=== PATIENT | female | born 1950 | race Two or more races ===

== ENCOUNTER 2018-08-24 07:28 | Day surgery (SDC) | payer OTHER ==
[2018-08-24] VITALS (12 sets, daily range): BP systolic 138–160; BP diastolic 63–80; PULSE 70–86; RESP 16–32; Ht 154.9 cm; Wt 82.9 kg
[~2018-08-24] VITALS: Ht 154.9 cm; Wt 82.9 kg
[~2018-08-24 07:28] MED LIST: CEFAZOLIN 1 GM INJ ONE; DESFLURANE 15 MIN ONE; DEXAMETHASONE 4 MG/ML 5 ML INJ ONE; GLYCOPYRROLATE 0.4 MG INJ ONE; NEOSTIGMINE 3 MG/3 ML SYRINGE ONE; ONDANSETRON 4 MG INJ ONE
--- NOTE | 2018-08-24 07:30 | HPN ---
Date/Time of Note Date/Time of Note DATE: 08/24/18 TIME: 07:29 Interval H&P Admission Note Pt. seen H&P reviewed: No system changes VIKI MARIN MD Aug 24, 2018 07:30
[2018-08-24] MEDS ORDERED: MIDAZOLAM 1 MG/ML 2 ML INJ ONE (08:15)
[2018-08-24] MEDS ORDERED: FENTAnyl 50 MCG/ML VIAL ONE (08:15)
[2018-08-24] MEDS ORDERED: ROCURONIUM 50 MG INJ ONE (08:16)
[2018-08-24] MEDS ORDERED: PROPOFOL 20 ML ONE (08:16)
[2018-08-24] MEDS ORDERED: METOCLOPRAMIDE 10 MG INJ ONE (08:16)
[2018-08-24] MEDS ORDERED: SUCCINYLCHOLINE CHLORIDE 100 MG/5 ML SYG IV ONE (08:16)
[2018-08-24] MEDS ORDERED: ROPIVACAINE 0.5 % 30 ML VIAL ONE (08:16)
[2018-08-24] MEDS ORDERED: LIDOCAINE 2% (SDV) 5 ML INJ ONE (08:16)
[2018-08-24] MEDS ORDERED: IPRATROPIUM (NEB) 0.5 MG/2.5 ML AMP HHN ONE (08:30)
[2018-08-24] MEDS ORDERED: LEVALBUTEROL (NEB) 1.25 MG/0.5 ML AMP HHN ONE (08:30)
[2018-08-24] MEDS ORDERED: BUPIVACAINE 0.5%/EPI (SDV) 30 ML INJ ONE (08:46)
[2018-08-24] MEDS ORDERED: ESCI10TA PO (08:48)
[2018-08-24] MEDS ORDERED: ASPI81TA52 PO (08:48)
[2018-08-24] MEDS ORDERED: ATOR20TA38 PO (08:49)
[2018-08-24] MEDS ORDERED: MELO15TA30 PO (08:49)
[2018-08-24] MEDS ORDERED: NIFE60TA18 PO (08:49)
[2018-08-24] MEDS ORDERED: CLON-379 PO (08:50)
--- NOTE | 2018-08-24 09:15 | PREAC ---
Date/Time of Note Date/Time of Note DATE: 08/24/18 TIME: 09:13 Anesthesia Eval and Record Evaluation Time Pre-Procedure Interview DATE: 08/24/18 TIME: 09:13 Age 67 Sex female NPO: 8 hrs Preoperative diagnosis gallstones Planned procedure lap mireya Past Medical History Past Medical History: Includes Cardio: HTN, Dyslipidemia Pulm: Sleep Apnea, Other (dry cough, no phlegm/no fever/noWBCs) Musculoskeletal: Osteoarthritis Renal: CKD GI: GERD, Obesity Heme: Thrombocytopenia Psych: Depression Surgery & Anesthesia Issues Hx of difficult intubation Meds Anticoagulation: No Beta Guillaume within 24 hr: No Reason Beta Guillaume not given: Pt. not on B-Guillaume Reported Medications Clonidine Hcl* (Clonidine Hcl*) 0.1 Mg Tab, 0.1 MG PO DAILY PRN for ELEVATED BLOOD PRESSURE, TAB 08/24/18 Meloxicam* (Mobic*) 15 Mg Tablet, 15 MG PO DAILY, #30 TAB 08/24/18 Atorvastatin Calcium* (Atorvastatin Calcium*) 20 Mg Tablet, 20 MG PO QHS, #30 TAB 08/24/18 Nifedipine* (Nifedipine ER*) 60 Mg Tablet.sa, 60 MG PO DAILY, TAB.SA 08/24/18 Aspirin (Low Dose Aspirin) 81 Mg Tablet.dr, 81 MG PO DAILY, #30 TAB 08/24/18 Escitalopram Oxalate* (Lexapro*) 10 Mg Tablet, 10 MG PO DAILY, #30 TAB 08/24/18 Meds reviewed: Yes Allergies Coded Allergies: No Known Allergy (Unverified , 08/24/18) Allergies Reviewed: Yes Labs/Studies Labs Reviewed: Reviewed by anesthesiologist test: Negative Studies: ECG, CXR Pre-procedure Exam Last vitals Vital Signs Date Temp Pulse Resp B/P (MAP) Pulse Ox O2 O2 Flow FiO2 Time Delivery Rate 08/24/18 87.1 86 16 160/80 97 Room Air 08:43 (106) Airway: Adequate mouth opening, Adequate thyromental dist Mallampati: Mallampati III Teeth: Normal Lung: Normal Heart: Normal ASA Physical Status ASA physical status: 3 Emergency: None Planned Anesthetic General/MAC: ETT Planned Pain Management Single shot nerve block, Parenteral pain med, Local by surgeon Pre-operative Attestations Prior to commencing anesthesia and surgery, the patient was re-evaluated, there was verification of: *The patient's identity *The results of appropriate recent lab work and preoperative vital signs *The above evaluation not changing prior to induction *Anesthetic plan, risk benefits, alternative and complications discussed with patient/family; questions answered; patient/family understands, accepts and wishes to proceed. MANE FRAGA MD Aug 24, 2018 09:15
[2018-08-24] MEDS ORDERED: HYDROmorphONE 1 MG/5 ML IV SYRINGE IV PRN ×2 (09:30)
[2018-08-24] MEDS ORDERED: FENTAnyl 50 MCG/ML VIAL IV PRN ×2 (09:30)
[2018-08-24] MEDS ORDERED: LABETALOL HCL 20MG INJ IV PRN (09:30)
[2018-08-24] MEDS ORDERED: LEVALBUTEROL (NEB) 1.25 MG/0.5 ML AMP HHN PRN (09:30)
[2018-08-24] MEDS ORDERED: hydrALAzine 20 MG INJ IV PRN (09:30)
[2018-08-24] MEDS ORDERED: KETOROLAC 30 MG INJ IV PRN (09:30)
[2018-08-24] MEDS ORDERED: DIPHENHYDRAMINE 50 MG INJ IV PRN (09:30)
[2018-08-24] MEDS ORDERED: IPRATROPIUM (NEB) 0.5 MG/2.5 ML AMP HHN PRN (09:30)
[2018-08-24] MEDS ORDERED: ONDANSETRON 4 MG INJ IV PRN ×2 (09:30→10:30)
[2018-08-24] MEDS ORDERED: MEPERIDINE 25 MG INJ IV PRN (09:30)
--- NOTE | 2018-08-24 10:23 | OPR ---
Date/Time of Note Date/Time of Note DATE: 08/24/18 TIME: 10:20 Operative Report Procedure Date: Aug 24, 2018 Preoperative Diagnosis Gallstones without obstruction Postoperative Diagnosis Gallstones without obstruction Operation/Procedure Performed Laparoscopic cholecystectomy Surgeon Viki Marin MD Search Specialist None Anesthesia Type: general Anesthesiologist: MANE FRAGA MD Estimated Blood Loss: 0 - 10 ml's Transfusion none Specimen Gallbladder Grafts/Implants none Tubes/Drains None Complications none Pt Condition Post Procedure: stable Disposition: PACU Indications Symptomatic cholelithiasis Procedure Description After satisfactory general endotracheal anesthesia was achieved, the abdomen was prepped and draped in the usual fashion. The abdomen was insufflated with carbon dioxide through an umbilical Veress needle to 15 mmHg pressure. The Veress needle was removed and the umbilical incision extended to 5 mm through which a 5 mm trocar was placed. A 5 mm 0 degree lens was placed. Laparoscopy was unremarkable. Under direct visualization an 11 mm epigastric trocar was placed as well as 2 more 5 mm right upper quadrant abdominal trochars. The dome of the gallbladder was grasped and retracted superiorly. Blevins's pouch was grasped and retracted inferolaterally. The hepatoduodenal ligament was carefully dissected between the gallbladder and the well-visualized emily hepatis. The cystic duct was dissected circumferentially then triply hemoclipped and divided high at the junction of the gallbladder and the cystic duct. The cystic artery was identified immediately posteriorly. This was triply hemoclipped and divided. The gallbladder was then dissected from below using electrocautery dissection and placed fully intact into an Endo Catch removed by the epigastric route. Hemostasis was total and irrigant returned clear. The abdomen was then desufflated and all trochars were removed. The fascia of the gastrium was closed with 2 sutures of 0 Vicryl and one suture of #1 Vicryl. The skin punctures were infiltrated with 30 cc of 0.25% plain Marcaine and closed with monica. Sponge and needle counts were reported as correct x2. VIKI MARIN MD Aug 24, 2018 10:23
[2018-08-24] MEDS ORDERED: OXYCODONE/ACETAMINOPHEN (5/325) TAB PO PRN ×2 (10:30)
[2018-08-24] MEDS ORDERED: morphine 2 MG INJ IV PRN (10:30)
[2018-08-24] MEDS: HYDROmorphONE 1 MG/5 ML IV SYRINGE IV PRN ×2 (10:57→11:05)
== END 2018-08-24 12:43 | disposition home or self-care (01) ==
LOC: SDS 07:28
PROVIDERS: ATTEND Surgery
DX: K80.10 Calculus of gallbladder with chronic cholecystitis without obstruction (principal); I10 Essential (primary) hypertension; E78.5 Hyperlipidemia, unspecified; K21.9 Gastro-esophageal reflux disease without esophagitis; F17.210 Nicotine dependence, cigarettes, uncomplicated; R05 Cough
CPT/HCPCS: 47562; 82962; 94664; J0690; J1100; J1170; J2175; J2250; J2405; J2710; J2765; J2795; J3010; Z7512; Z7610; 88304

== ENCOUNTER 2019-02-03 11:11 | Emergency (ER) | payer OTHER ==
[~2019-02-03] VITALS: Ht 154.9 cm; Wt 75.0 kg
[~2019-02-03 11:11] MED LIST changes: +ASPI81TA52 PO; +ATOR20TA38 PO; -CEFAZOLIN 1 GM INJ ONE; +CLON-379 PO; -DESFLURANE 15 MIN ONE; -DEXAMETHASONE 4 MG/ML 5 ML INJ ONE; +ESCI10TA PO; -GLYCOPYRROLATE 0.4 MG INJ ONE; +MELO15TA30 PO; -NEOSTIGMINE 3 MG/3 ML SYRINGE ONE; +NIFE60TA18 PO; -ONDANSETRON 4 MG INJ ONE
[2019-02-03 11:18] VITALS: Ht 154.9 cm; Wt 75.0 kg
[2019-02-03] MEDS ORDERED: SOD CHLORIDE 0.9% 500 ML IV STA (12:28)
--- NOTE | 2019-02-03 12:28 | ERD ---
ER Documentation Chief Complaint Chief Complaint abd pain with vomiting x 2 days HPI 68-year-old female diabetic, hypertensive status post lap cholecystectomy August 2018 presents to the ED complaining of a 5-day history of moderate, crampy, nonradiating, intermittent, diffuse upper abdominal pain with nausea but no vomiting, diarrhea or constipation. Pain is exacerbated by eating but there are no relieving factors. No hematemesis, hematochezia or melena. She was seen by her PMD 2 days ago, labs showed leukocytosis and the patient was told to go to the ER for further evaluation. Denies chest pain, palpitations or shortness of breath. Denies dysuria, polyuria, hematuria or flank pain. No fevers or chills. ROS All systems reviewed and are negative except as per history of present illness. Medications Home Meds Active Scripts Famotidine* (Pepcid*) 20 Mg Tablet, 20 MG PO BID for 10 Days, TAB Prov:DE ZAMORA MD 02/03/19 Reported Medications Losartan-Hydrochlorothiazide (Losartan-HCTZ) 100-12.5 Mg Tab, 1 TAB PO DAILY, TAB 02/03/19 Omeprazole* (Omeprazole*) 20 Mg Capsule.dr, 20 MG PO DAILY, #30 CAP 02/03/19 Atorvastatin* (Atorvastatin*) 40 Mg Tablet, 40 MG PO QHS, #30 TAB 02/03/19 Allopurinol* (Allopurinol*) 100 Mg Tablet, 100 MG PO DAILY, TAB 02/03/19 Metformin Hcl* (Metformin Hcl*) 500 Mg Tablet, 500 MG PO WITH BREAKFAST, #30 TAB 02/03/19 Ergocalciferol (Vitamin D2) (VITAMIN D2) 50,000 Unit Capsule, 77266 UNIT PO Q7D, CAP 02/03/19 Clonidine Hcl* (Clonidine Hcl*) 0.1 Mg Tab, 0.1 MG PO DAILY PRN for ELEVATED BLOOD PRESSURE, TAB 08/24/18 Aspirin (Low Dose Aspirin) 81 Mg Tablet.dr, 81 MG PO DAILY, #30 TAB 08/24/18 Discontinued Reported Medications Meloxicam* (Mobic*) 15 Mg Tablet, 15 MG PO DAILY, #30 TAB 08/24/18 Atorvastatin Calcium* (Atorvastatin Calcium*) 20 Mg Tablet, 20 MG PO QHS, #30 TAB 08/24/18 Nifedipine* (Nifedipine ER*) 60 Mg Tablet.sa, 60 MG PO DAILY, TAB.SA 08/24/18 Escitalopram Oxalate* (Lexapro*) 10 Mg Tablet, 10 MG PO DAILY, #30 TAB 08/24/18 Allergies Allergies: Coded Allergies: No Known Allergy (Unverified , 02/03/19) PMhx/Soc History of Surgery: Yes Anesthesia Reaction: No Hx Neurological Disorder: No Hx Respiratory Disorders: No Hx Cardiac Disorders: Yes (Hypertension) Hx Psychiatric Problems: No Hx Miscellaneous Medical Probl: Yes (diabetes) Hx Alcohol Use: No Hx Substance Use: No Hx Tobacco Use: Yes (2-3 a day) FmHx No cancer or heart disease Physical Exam Vitals Vital Signs Date Temp Pulse Resp B/P (MAP) Pulse Ox O2 O2 Flow FiO2 Time Delivery Rate 02/03/19 75 17 179/80 100 Room Air 17:52 (113) 02/03/19 86 17 211/88 100 Room Air 12:53 (129) 02/03/19 98.8 75 18 197/93 98 11:18 (127) Physical Exam Const: Mild distress. Head: Atraumatic Eyes: Normal Conjunctiva. Anicteric ENT: Normal External Ears, Nose and Mouth. Neck: Full range of motion. No meningismus. Resp: Clear to auscultation bilaterally Cardio: Regular rate and rhythm, no murmurs Abd: Soft, obese, mild diffuse upper abdominal tenderness but no rebound or guarding. Nondistended. Normal bowel sounds. No masses or abnormal pulsations. Skin: No petechiae or rashes Back: No midline or flank tenderness Ext: No cyanosis, or edema. Pulses 4+ in all extremities Neur: Awake and alert. No focal deficit Psych: Normal Mood and Affect Result Diagram: 02/03/19 1239 02/03/19 1239 Results 24 hrs Laboratory Tests Test 02/03/19 12:39 02/03/19 12:45 White Blood Count 12.6 10^3/ul Red Blood Count 4.28 10^6/ul Hemoglobin 11.9 g/dl Hematocrit 36.3 % Mean Corpuscular Volume 84.8 fl Mean Corpuscular Hemoglobin 27.8 pg Mean Corpuscular Hemoglobin Concent 32.8 g/dl Red Cell Distribution Width 12.8 % Platelet Count 240 10^3/UL Mean Platelet Volume 11.4 fl Immature Granulocytes % 0.400 % Neutrophils % 50.6 % Lymphocytes % 26.6 % Monocytes % 4.6 % Eosinophils % 17.0 % Basophils % 0.8 % Nucleated Red Blood Cells % 0.0 /100WBC Immature Granulocytes # 0.050 10^3/ul Neutrophils # 6.4 10^3/ul Lymphocytes # 3.4 10^3/ul Monocytes # 0.6 10^3/ul Eosinophils # 2.1 10^3/ul Basophils # 0.1 10^3/ul Nucleated Red Blood Cells # 0.0 10^3/ul Urine Color YELLOW Urine Clarity CLEAR Urine pH 6.0 Urine Specific [place] 1.013 Urine Ketones NEGATIVE mg/dL Urine Nitrite NEGATIVE mg/dL Urine Bilirubin NEGATIVE mg/dL Urine Urobilinogen NEGATIVE mg/dL Urine Leukocyte Esterase 1+ Anibal/ul Urine Microscopic RBC 0 /HPF Urine Microscopic WBC 1 /HPF Urine Hemoglobin NEGATIVE mg/dL Urine Glucose NEGATIVE mg/dL Urine Total Protein NEGATIVE mg/dl Sodium Level 143 mmol/L Potassium Level 4.3 mmol/L Chloride Level 102 mmol/L Carbon Dioxide Level 30 mmol/L Anion Gap 11 Blood Urea Nitrogen 15 mg/dl Creatinine 0.88 mg/dl Est Glomerular Filtrat Rate mL/min > 60 mL/min Glucose Level 160 mg/dl Calcium Level 10.1 mg/dl Total Bilirubin 0.8 mg/dl Direct Bilirubin 0.00 mg/dl Indirect Bilirubin 0.8 mg/dl Aspartate Amino Transf (AST/SGOT) 20 IU/L Alanine Aminotransferase (ALT/SGPT) 40 IU/L Alkaline Phosphatase 115 IU/L Total Protein 8.1 g/dl Albumin 4.5 g/dl Globulin 3.60 g/dl Albumin/Globulin Ratio 1.25 Lipase 77 U/L Troponin I < 0.012 ng/ml Current Medications Medications Dose Sig/Fredis Start Time Status Last (Trade) Ordered Route PRN Stop Time Admin Dose Reason Admin Sodium 500 ml @ Q1H STAT 02/03/19 DC 02/03/19 Chloride 500 mls/hr IV 12:28 12:56 02/03/19 13:27 IV Flush 10 ml STK-MED 02/03/19 DC 02/03/19 (NS 10 ml) ONCE .ROUTE 13:58 14:07 02/03/19 13:59 Sodium 100 ml @ ud STK-MED 02/03/19 DC 02/03/19 Chloride ONCE .ROUTE 13:58 14:07 02/03/19 13:59 Iohexol 150 ml STK-MED 02/03/19 DC 02/03/19 (Omnipaque ONCE .ROUTE 13:58 14:07 300mg/ ml) 02/03/19 13:59 Procedures/MDM DOCUMENTS REVIEWED: ED nurse, prior records EKG: Time: 1630. Sinus rhythm with occasional PVCs. No acute ST segment elevation or depression. Nonspecific ST-T wave changes. Normal axis. My Interpretation IMAGING: PROCEDURE: CT Abdomen and Pelvis with contrast. CLINICAL INDICATION: Abdominal pain. TECHNIQUE: CT scan of the abdomen and pelvis with contrast was performed on a multi-detector high-resolution CT scanner. The patient was scanned following the uncomplicated intravenous administration of 100 cc of Omnipaque 300. Coronal and sagittal reformatted images were obtained from the axial source images. Images were reviewed on a high-resolution PACS workstation. The total exam CTDI equals 15.42 mGy and the total exam DLP equals 902.12 mGy-cm. DICOM images are available. One or more of the following dose reduction techniques were used: Automated exposure control. Adjustment of the mA and/or kV according to patient size. Use of iterative reconstruction technique. COMPARISON: None. FINDINGS: CT abdomen: The lung bases are remarkable for mild posterior dependent atelectasis. The heart size is normal, without pericardial thickening or effusion. The liver is normal in size and density without focal mass or intrahepatic biliary dilatation. The spleen is normal in size and homogeneous in density. The stomach is partially collapsed, but is grossly unremarkable. The pancreas as visualized is normal. The gallbladder is surgically absent. There is no evidence for biliary dilatation. Indeterminate bilateral adrenal nodules are present. The kidneys are normal in size and enhance symmetrically. There are a few small right renal cysts measures up to 1.6 cm in the posterior mid pole righ t kidney. There are several sub centimeter hypodensities in both kidneys, too small to further characterize but statistically more likely additional cysts. The aorta is of normal caliber. Aortic vascular calcifications are present. There is no retroperitoneal lymphadenopathy. The emily hepatis region is clear. The bowel and mesentery, as visualized, are equally unremarkable. There is a small hiatal hernia. There is a fat-containing epigastric hernia. There is an intramuscular lipoma measuring 2 x 5 cm (transverse by craniocaudal) in the right upper lateral abdominal wall measuring 2 x 5 cm. There is a small fat containing periumbilical hernia. There is mild diverticulosis of the descending and sigmoid colon without evidence of acute diverticulitis. CT pelvis: The small bowel loops situated within the pelvis are unremarkable. There is approximately 2.5 cm hypodensity in the left adnexa.. The pelvic sidewalls and inguinal regions are clear. The sigmoid colon and rectum are remarkable for sigmoid diverticulosis. No mass, lymphadenopathy, or free fluid is seen. No acute inflammation is seen. The bladder is normal. The surrounding osseous structures are unremarkable. No osteolytic or osteoblastic lesion is detected. IMPRESSION: 1. No mass, lymphadenopathy, or focal acute inflammatory process is identified. 2. Scattered diverticula in the descending and sigmoid colon without evidence of acute diverticulitis. 3. Status post cholecystectomy. No biliary ductal dilatation. 4. Indeterminate bilateral adrenal nodules. Recommend CT adrenal for further characterization or short-term CT follow-up to ensure stability. 5. Small renal cysts. 6. Mild hiatal hernia. 7. Scattered aortoiliac atherosclerosis without aneurysmal dilatation. 8. Small fat containing periumbilical hernia. 9. Approximately 2.5 cm hypodensity in the left adnexa. Consider pelvic ultra sound for further evaluation. RPTAT: HHO .Stephany Raymundo MD, Date Time Electronically viewed and signed by .Stephany Raymundo MD, on 02/03/2019 14:34 .O/ PROCEDURE: Ultrasound pelvis. CLINICAL INDICATION: Pelvic pain. TECHNIQUE: Sonographic evaluation of the pelvis was performed using transabdominal views. COMPARISON: Same day CT. FINDINGS: Uterus/cervix: Heterogeneous but otherwise poorly visualized. Endometrium: Not visualized. Ovaries/Adnexa: Not visualized. Free fluid: None. MEASUREMENTS: Uterus: 5.9 x 4.5 x 4.7 cm. IMPRESSION: Markedly limited examination, as the patient declined endovaginal views. Bilateral ovaries are not visualized but no adnexal cyst or mass is demonstrated bilaterally by transabdominal ultrasound. Recommend follow-up with outpatient endovaginal ultrasound. The 2.5 cm structure in the left ovary seen on the same day CT is nonspecific in appearance but appears benign. RPTAT: EE .Dillon Jerome MD, MD Date Time Electronically viewed and signed by .Dillon Jerome MD, on 02/03/2019 16:06 .C/ REEXAMINATION/REEVALUATION: Time: 14:30. Afebrile. No pain. Time: 16:10. Doing well. Abdomen soft nontender. No nausea vomiting. OBSERVATION NOTE: At 1230 the patient was entered into observation status to establish the need for admission. During this time the patient was treated for abdominal pain. Additionally, extensive evaluation including, CBC, chemistry, urinalysis, EKG, CT scan of the abdomen pelvis and ultrasound of the pelvis were preformed with results interpreted as above. Vitals signs were monitored and multiple, frequent reexaminations were performed. At 1610 the patient was reexamined; VSS, afebrile, pain resolved and tolerating PO's. Based on these findings the patient was discharged from observation as it was determined that the patient was improved and met criteria for discharge. TOTAL OBSERVATION TIME: 3.5 hours. MEDICAL DECISION MAKIN-year-old female diabetic, hypertensive status post lap cholecystectomy August 2018 presents to the ED complaining of a 5-day history of moderate, crampy, nonradiating, intermittent, diffuse upper abdominal pain with nausea but no vomiting, diarrhea or constipation. CBC significant for mild leukocytosis and anemia. Chemistry to evaluate for electrolyte abnormalities, renal insufficiency and hyperglycemia is unremarkable. No hyperbilirubinemia or transaminitis. Lipase is not elevated or consistent with pancreatitis. CT abd/pelvis with contrast findings as above significant for ad renal nodules which will need followup. No bowel obstruction, diverticulitis, appendicitis, AAA or mesenteric ischemia. Pelvic ultrasound as recommended to further evaluate the ovarian mass is limited but appears benign. No UTI or pyelonephritis. EKG negative for ischemia and dysrhythmia. Troponin negative. Patient presents with leukocytosis and abdominal pain of unknown etiology despite an extensive workup. Stable for discharge with precautionary instructions and outpatient follow-up as counseled. Counseled patient regarding diagnostic workup, diagnosis and need for followup. Understands to return to ED if symptoms recur, worsen or any other concerns. Departure Diagnosis: Primary Impression: Acute bilateral upper abdominal pain Additional Impressions: Abdominal pain of unknown cause Ovarian mass, left Adrenal nodule Condition: Stable DE ZAMORA MD Feb 03, 2019 12:28
[2019-02-03] MEDS ORDERED: METF500T24 PO (12:32)
[2019-02-03] MEDS ORDERED: ERGO500013 PO (12:32)
[2019-02-03] MEDS ORDERED: ALLO100T PO (12:33)
[2019-02-03] MEDS ORDERED: OMEP20CA16 PO (12:33)
[2019-02-03] MEDS ORDERED: ATOR40TA68 PO (12:33)
[2019-02-03] MEDS ORDERED: LOSA1TAB28 PO (12:34)
[2019-02-03] MEDS ORDERED: IOHEXOL 300MG/ML 150 ML BTL ONE (13:58)
[2019-02-03] MEDS ORDERED: SOD CHLORIDE 0.9% 100 ML ONE (13:58)
[2019-02-03] MEDS ORDERED: FAMO-96 PO (17:34)
[2019-02-03 17:52] VITALS: BP 179/80; PULSE 75; RESP 17
== END 2019-02-03 17:55 | disposition home or self-care (01) ==
LOC: E/R 11:11
DX: N83.202 Unspecified ovarian cyst, left side (principal); I10 Essential (primary) hypertension; E11.9 Type 2 diabetes mellitus without complications; F17.210 Nicotine dependence, cigarettes, uncomplicated; E27.8 Other specified disorders of adrenal gland; Z79.82 Long term (current) use of aspirin; Z79.84 Long term (current) use of oral hypoglycemic drugs
CPT/HCPCS: 36415; 74177; 76856; 80053; 81001; 83690; 84484; 85025; 93005; J7040; Q9967; Z7502; Z7610